=== PATIENT | female | born 1985 | race Caucasian/White ===

== ENCOUNTER 2018-02-15 08:26 | Day surgery (SDC) | payer OTHER ==
[2018-02-15] MEDS ORDERED: PROPOFOL 60 ML (10:07)
[2018-02-15] MEDS ORDERED: LIDOCAINE 2% (SDV) 5 ML INJ (10:07)
[2018-02-15] MEDS ORDERED: ONDANSETRON 4 MG INJ (11:04)
== END 2018-02-15 12:17 | disposition home or self-care (01) ==
LOC: GIL 08:26
DX: K21.9 Gastro-esophageal reflux disease without esophagitis (principal); K29.70 Gastritis, unspecified, without bleeding; K64.8 Other hemorrhoids
CPT/HCPCS: 43239; 84703; 88305